=== PATIENT | male | born 1985 | race Caucasian/White ===

== ENCOUNTER 2023-04-17 21:53 | Outpatient (CLI) | payer SELFPAY | END 2023-04-17 21:54 | disposition home or self-care (01) | PROVIDERS: Visit Provider Family Medicine | DX: T59.814A Toxic effect of smoke, undetermined, initial encounter (principal) | CPT/HCPCS: A0998 ==

== ENCOUNTER 2024-08-31 08:25 | Emergency (ER) | payer BC, SELFPAY ==
[2024-08-31 08:28] VITALS: BP 162/87; PULSE 106; RESP 24; TEMP 37; O2SAT 100; BMI 28.9
--- NOTE | 2024-08-31 08:40 | ED_ITS ---
HPI - General Adult General Chief complaint: Eye Problems Stated complaint: welding rock/eyes Time Seen by Provider: 08/31/24 08:36 History of Present Illness HPI narrative: Pt states about 8 hours ago he was welding and burnt his eyes from the light. Was not wearing any eye protection. Pt presents in triage with dark glasses, sensitivity to light. Unable to keep eyes open. States this has happened before . 39-year-old man presenting to the emergency department in apparent pain with pain to his eyes sustained while welding. Apparently this occurred about 8 hours ago. Was not with eye protection during welding. This actually has occurred prior. Denies that he has gotten any foreign body in his eyes. Really can not keep his eyes open. Was given some acetaminophen last night without relief. Related Data Home Medications ?Medication ?Instructions ?Recorded ?Confirmed No Known Home Medications 08/31/24 08/31/24 Allergies Allergy/AdvReac Type Severity Reaction Status Date / Time No Known Drug Allergies Allergy Verified 08/31/24 08:35 Review of Systems Status of ROS: Reports: 6 or more systems reviewed and unremarkable except as noted in History and below PFSH PFSH Social History Smoking Status: Current every day smoker What tobacco products do you use: cigarettes How often do you have a drink containing alcohol: monthly or less AUDIT-C Alcohol total score: 1 Non-prescribed substance use: denies use Exam Narrative: Exam Narrative: Arrives moaning in clear discomfort. Either eyes are closed or is also wearing dark sunglasses. Is diaphoretic? Quite photophobic. Unable to do much of an eye exam. Improved after application of tetracaine. Const: Vital Signs, click to edit/add: Vital Signs - 24 hr 08/31/24 08:28 08/31/24 10:36 Temperature 98.6 F 97.0 F L Pulse Rate [Right Pulse Oximeter] 106 H 67 Respiratory Rate 24 18 Blood Pressure [Ri ght Upper Arm] 162/87 H 146/92 H Pulse Oximetry 100 94 Oxygen Delivery Me thod Room Air Room Air Documenting provider has reviewed patient's vital signs: yes Course Vital Signs Vital signs: Initial Vital Signs Temperature 98.6 F 08/31/24 08:28 Temperature Source Temporal Artery Scan 08/31/24 08:28 Pulse Rate 106 H 08/31/24 08:28 Pulse Rhythm Regular 08/31/24 08:28 Pulse Strength 2+ Slightly Diminished 08/31/24 08:28 Respiratory Rate 24 08/31/24 08:28 Blood Pressure 162/87 H 08/31/24 08:28 Blood Pressure Mean 112 H 08/31/24 08:28 Blood Pressure Position Sitting 08/31/24 08:28 Pulse Oximetry 100 08/31/24 08:28 Oxygen Delivery Method Room Air 08/31/24 08:28 Vital Signs Temperature 98.6 F 08/31/24 08:28 Pulse Rate 106 H 08/31/24 08:28 Respiratory Rate 24 08/31/24 08:28 Blood Pressure 162/87 H 08/31/24 08:28 Pulse Oximetry 100 08/31/24 08:28 Oxygen Delivery Method Room Air 08/31/24 08:28 Temperature 97.0 F L 08/31/24 10:36 Pulse Rate 67 08/31/24 10:36 Respiratory Rate 18 08/31/24 10:36 Blood Pressure 146/92 H 08/31/24 10:36 Pulse Oximetry 94 08/31/24 10:36 Oxygen Delivery Method Room Air 08/31/24 10:36 Medications Administered Medications: Discontinued Medications Generic Name Dose Route Start Last Admin Trade Name Freq PRN Reason Stop Dose Admin Ibuprofen 800 mg 08/31/24 08:51 08/31/24 09:03 Ibuprofen 400 Mg Tablet PO 08/31/24 08:52 800 mg ONCE ONE Administration Oxycodone/Acetaminophen 2 tab 08/31/24 08:51 08/31/24 09:03 Oxycodone/Apap 5-325 Tablet PO 08/31/24 08:52 2 tab ONCE ONE Administration Medical Decision Making [facility] Narrative Medical decision making narrative: Presuming a UV keratitis here. He clearly denies foreign body. Denies trauma otherwise. Have placed tetracaine drops which offer temporary relief. Unable to accomplish any other significant eye exam. He does not want more light applied. Pupils appear to be equal. No apparent periocular trauma. Have requested 2 tabs of Percocet and ibuprofen to be given. Due to degree of discomfort and anticipating need for follow-up I do also contact [facility] and speak with Dr. Fung. Return to place more tetracaine and then atropine drops. This does appear to help further. Also placed flurbiprofen drops and then erythromycin ophthalmic ointment in this order. Over this period of time oral pain medication has taken effect as well. Overall markedly improved in demonstrations of pain. As I have not done enough I think of an eye exam here, though the diagnosis I think is pretty clear, I would like close follow-up in ophthalmology clinic See patient discharge plan for further discussion Sending you home with erythromycin ophthalmic ointment, atropine ophthalmic solution, diclofenac ophthalmic solution. See instructions for use. Can take up to 800 mg of ibuprofen per dose. Alternative this might be up to 500 mg of naproxen 2 times daily. Also prescribing you Percocet, and opiate pain medication from [facility] if really needed. I did speak with Dr. Fung at [facility]. I would like you to call today for a follow-up appointment, maybe for Thursday before the . 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 Discharge Plan Discharge Clinical Impression: Bread Packer's flash of both eyes Patient Disposition: Home w/ Parent or Adult Condition: Stable Instructions: Corneal Flash Rock (ED), Keratitis (ED) Additional Instructions: Sending you home with erythromycin ophthalmic ointment, atropine ophthalmic solution, diclofenac ophthalmic solution. See instructions for use. Can take up to 800 mg of ibuprofen per dose. Alternative this might be up to 500 mg of naproxen 2 times daily. Also prescribing you Percocet, and opiate pain medication from [facility] if really needed. I did speak with Dr. Fung at [facility]. I would like you to call today for a follow-up appointment, maybe for Thursday before the . 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 Prescriptions: No Action No Known Home Medications Follow Up/Referrals: Provider,Not a Local [Primary Care Provider] - Stand Alone Forms: CallMD Info Instructions
[2024-08-31] MEDS: IBUPROFEN 400 MG TABLET 800 MG PO (09:03)
[2024-08-31] MEDS: OxyCODONE/APAP 5-325 TABLET 2 TAB PO (09:03)
[2024-08-31 10:36] VITALS: BP 146/92; PULSE 67; RESP 18; TEMP 36.1; O2SAT 94
== END 2024-08-31 11:18 | disposition home or self-care (01) ==
PROVIDERS: Emergency Provider Family Medicine
DX: H16.133 Photokeratitis, bilateral (principal); W89.8XXA Exposure to other man-made visible and ultraviolet light, initial encounter; Y93.89 Activity, other specified
CPT/HCPCS: 99283; 99284; A9270